=== PATIENT | female | born 1995 | race Caucasian/White ===

== ENCOUNTER 2019-06-21 20:30 | Emergency (ER) | payer OTHER, MEDICAID ==
[2019-06-21 23:02] LABS: ABS Basophils 0.1 10^3/ul (0-0.2); ABS Eosinophils 0.2 10^3/ul (0-0.6); ABS Lymphocytes 2.9 10^3/ul (1.0-4.8); ABS Monocytes 0.9 10^3/ul (0-0.8); ABS Neutrophils 12.4 10^3/ul (1.5-7.7); Eosinophil % 1.2 %; Hematocrit 40 % (35-47); Hemoglobin 13.6 g/dL (12.0-16.0); Lymphocyte % 17.5 %; Mean Corpuscular HGB Conc 34 g/dL (31-36); Mean Corpuscular Hemoglobin 31 pg (27-31); Mean Corpuscular Volume 91 fL (80-97); Mean Platelet Volume 7.6 fL (7.4-10.4); Nucleated Red Blood Cells % 0.1; Platelet Count 415 10^3/uL (150-450); Red Blood Count 4.43 10^6 /uL (3.70-4.87); Red Cell Distribution Width 13 % (10-15); White Blood Count 16.4 10^3/uL (3.5-10.8)
--- NOTE | 2019-06-21 23:08 | ED ---
Medical Screening - HPI Summary HPI Summary: Family bringing patient to ED for episodes of aggression against family. Patient has history of depression 4 years on medication. Denies SI, HI. Family states patient medications have been recently adjusted but have not yet controlled patient's outbursts. Patient is followed by Dr. Wesley for mental health. Patient is compliant with medications. Also complains of sore throat. Denies any other pain, injury, symptoms. Medical history schizophrenia, anxiety. Denies EtOH, or recreational drug use. - History of Current Complaint Chief Complaint: EDPsychosocial Stated Complaint: MHE PER PT Time Seen by Provider: 06/21/19 22:17 Onset/Duration: Started Days Ago Severity: moderate PMH/Surg Hx/FS Hx/Imm Hx Endocrine/Hematology History: Denies: Hx Diabetes Cardiovascular History: Reports: Hx Hypertension Denies: Hx Pacemaker/ICD History: Denies: Hx Dialysis, Hx Renal Disease Sensory History: Reports: Hx Contacts or Glasses Denies: Hx Hearing Aid Opthamlomology History: Reports: Hx Contacts or Glasses EENT History: Denies: Hx Deafness Neurological History: Reports: Hx Developmental Delay Psychiatric History: Reports: Hx Panic Disorder - ANXIETY AND MOM WILL TALK WITH REF DOCTOR Denies: Hx Eating Disorder, Hx of Violent Episodes Against Others - Surgical History Surgery Procedure, Year, and Place: LABIA PLASTY - Immunization History Immunizations Up to Date: Yes Infectious Disease History: No Infectious Disease History: Denies: Traveled Outside the [place] in Last 30 Days - Family History Known Family History: Negative: Non-Contributory - Social History Alcohol Use: None Substance Use Type: Reports: None Smoking Status (MU): Never Smoked Tobacco Review of Systems Constitutional: Negative Eyes: Negative Positive: Sore Throat Cardiovascular: Negative Respiratory: Negative Gastrointestinal: Negative Genitourinary: Negative Musculoskeletal: Negative Skin: Negative Neurological: Negative Positive: Depressed All Other Systems Reviewed And Are Negative: Yes Physical Exam - Summary Physical Exam Summary: Patient calm and cooperative with history of present illness. ENT exam unremarkable. Triage Information Reviewed: Yes Vital Signs On Initial Exam: Initial Vitals Temp Pulse Resp BP Pulse Ox 99.4 F 90 16 163/125 98 06/21/19 20:32 06/21/19 20:32 06/21/19 20:32 06/21/19 20:32 06/21/19 20:32 Vital Signs Reviewed: Yes Appearance: Positive: Well-Appearing Skin: Positive: Warm Head/Face: Positive: Normal Head/Face Inspection Eyes: Positive: Normal ENT: Positive: Normal ENT inspection Neck: Positive: Supple Respiratory/Lung Sounds: Positive: Clear to Auscultation Cardiovascular: Positive: Normal Abdomen Description: Positive: Nontender Musculoskeletal: Positive: Normal Neurological: Positive: Normal Psychiatric: Positive: Normal AVPU Assessment: Alert - Ronny Coma Scale Best Eye Response: 4 - Spontaneous Best Motor Response: 6 - Obeys Commands Best Verbal Response: 5 - Oriented Coma Scale Total: 15 Diagnostics - Vital Signs Vital Signs Temp Pulse Resp BP Pulse Ox 06/21/19 20:32 99.4 F 90 16 163/125 98 - Laboratory Lab Results: Lab Results 06/21/19 Range/Units 22:55 WBC 16.4 H (3.5-10.8) 10^3/uL RBC 4.43 (3.70-4.87) 10^6 /uL Hgb 13.6 (12.0-16.0) g/dL Hct 40 (35-47) % MCV 91 (80-97) fL MCH 31 (27-31) pg MCHC 34 (31-36) g/dL RDW 13 (10-15) % Plt Count 415 (150-450) 10^3/uL MPV 7.6 (7.4-10.4) fL Neut % (Auto) 75.5 % Lymph % (Auto) 17.5 % [place] % (Auto) 5.2 % Eos % (Auto) 1.2 % Baso % (Auto) 0.6 % Absolute Neuts (auto) 12.4 H (1.5-7.7) 10^3/ul Absolute Lymphs (auto) 2.9 (1.0-4.8) 10^3/ul Absolute Monos (auto) 0.9 H (0-0.8) 10^3/ul Absolute Eos (auto) 0.2 (0-0.6) 10^3/ul Absolute Basos (auto) 0.1 (0-0.2) 10^3/ul Absolute Nucleated RBC 0.0 10^3/ul Nucleated RBC % 0.1 Result Diagrams: 06/21/19 22:55 06/21/19 22:55 Lab Statement: Any lab studies that have been ordered have been reviewed, and results considered in the medical decision making process. Course/Dx - Course Course Of Treatment: Family bringing patient to ED for episodes of aggression against family. Patient has history of depression 4 years on medication. Denies SI, HI. Family states patient medications have been recently adjusted but have not yet controlled patient's outbursts. Patient is followed by Dr. Wesley for mental health. Patient is compliant with medications. Also complains of sore throat. Denies any other pain, injury, symptoms. Medical history schizophrenia, anxiety. Denies EtOH, or recreational drug use. Vital signs within normal limits. WBC 16.4. Labs otherwise unremarkable. Strep negative. Mental health recommends discharge home with outpatient follow-up. - Diagnoses Provider Diagnoses: Adjustment disorder Discharge - Sign-Out/Discharge Documenting (check all that apply): Patient Departure Patient Received Moderate/Deep Sedation with Procedure: No - Discharge Plan Condition: Stable Disposition: HOME Patient Education Materials: Mood Disorders (ED) Referrals: No Primary Care Phys,NOPCP [Primary Care Provider] - Additional Instructions: Follow-up with outpatient mental health provider. - Billing Disposition and Condition Condition: STABLE Disposition: Home
[2019-06-21 23:18] LABS: ALT 32 U/L (7-52); Albumin 4.4 g/dL (3.2-5.2); Albumin/Globulin Ratio 1.4 (1-3); Alkaline Phosphatase 109 U/L (34-104); BUN/Creatinine Ratio 18.7 (8-20); Blood Urea Nitrogen 14 mg/dL (6-24); CO2 Carbon Dioxide 25 mmol/L (22-32); Calcium 9.5 mg/dL (8.6-10.3); Chloride 103 mmol/L (101-111); EGFR African American 116.9 (>60); EGFR Non-African American 96.6 (>60); Globulin 3.2 g/dL (2-4); Glucose 145 mg/dL (70-100); Sodium 136 mmol/L (135-145); Total Protein 7.6 g/dL (6.4-8.9)
[2019-06-21 23:25] LABS: HCG Pregnancy < 0.60 mIU/mL
[2019-06-21 23:33] LABS: Urine Appearance Clear; Urine Bilirubin Negative (Negative); Urine Blood Negative (Negative); Urine Color Colorless; Urine Glucose Negative (Negative); Urine Ketones Negative (Negative); Urine Nitrite Negative (Negative); Urine Protein Negative (Negative); Urine Specific Gravity 1.002 (1.010-1.030); Urine Urobilinogen Negative (Negative)
[2019-06-21 23:38] LABS: Acetaminophen < 15 mcg/mL; Alcohol < 10 mg/dL (<10); Salicylate < 2.50 mg/dL (<30)
[2019-06-21 23:42] LABS: AST 27 U/L (13-39); Anion Gap 8 mmol/L (2-11); Potassium 3.8 mmol/L (3.5-5.0)
[2019-06-21 23:57] LABS: Urine Benzodiazepine Screen None Detected (None Detect); Urine Opiates Screen None Detected (None Detect)
[2019-06-22 00:11] LABS: TSH (Thyroid Stimulating Horm) 1.74 mcIU/mL (0.34-5.60)
[2019-06-22] MEDS ORDERED: Escitalopram * 10 MG TAB PO ONE (02:08)
[2019-06-22] MEDS ORDERED: ARIPiprazole TAB* 5 MG PO ONE (02:09)
[2019-06-22] MEDS ORDERED: QUEtiapine XR TAB* 300 MG PO ONE (02:09)
[2019-06-22] MEDS ORDERED: ARIPiprazole TAB* 20 MG PO ONE (03:00)
--- NOTE | 2019-06-22 10:01 | ED ---
Progress - Progress Note Progress Note: The patient is a sign-out from Dr. Walker Parson MD, to Dr. Kemi Wong MD, at change of shift at 0700 on 06/22/2019, pending MHE and disposition. - awaiting collarteral, pt will be moved to annex At 0915, Dr. Oviedo, psychiatry, states that the patient is clear for discharge with dx of adjustment disorder and follow up with outpatient services. She agrees with this plan. - Consult/PCP Time Called: 23:37 Course/Dx - Course Course Of Treatment: The patient is a sign-out from Dr. Walker Parson MD, to Dr. Kemi Wong MD, at change of shift at 0700 on 06/22/2019, pending MHE and disposition. At 0915, Dr. Oviedo, pyschiatry, states that the patient is clear for discharge with dx of adjustment disorder and follow up with outpatient services. She agrees with this plan. - Diagnoses Provider Diagnoses: Adjustment disorder - Provider Notifications Discussed Care Of Patient With: Charli Oviedo - psychiatry Time Discussed With Above Provider: 09:15 Instructed by Provider To: Other - Dr. Oviedo states the patient can be discharged with dx of adjustment disorder and outpatient follow up. Discharge - Sign-Out/Discharge Documenting (check all that apply): Patient Departure - Patient will be discharged home., Receiving Sign-Out Receiving patient FROM: Walker Parson - Patient is a sign-out from Dr. Walker Parson MD, at change of shift at 0700 on 06/22/2019, pending MHE and disposition. Patient Received Moderate/Deep Sedation with Procedure: No - Discharge Plan Condition: Stable Disposition: HOME Patient Education Materials: Mood Disorders (ED) Referrals: No Primary Care Phys,NOPCP [Primary Care Provider] - - Billing Disposition and Condition Condition: STABLE Disposition: Home - Attestation Statements Document Initiated by Bianca: Yes Documenting Scribe: Grace Mendenhall Provider For Whom Bianca is Documenting (Include Credential): Dr. Kemi Wong MD Scribe Attestation: Grace Calixto scribed for Dr. Kemi Wong MD on 06/22/19 at 1032. Scribe Documentation Reviewed: Yes Provider Attestation: The documentation as recorded by the Grace mcqueen accurately reflects the service I personally performed and the decisions made by me, Dr. Kemi Wong MD Status of Scribандрей Document: Viewed
[2019-06-22 10:15] VITALS: BP 151/86
== END 2019-06-22 10:35 | disposition home or self-care (01) ==
LOC: ED 20:30
DX: F43.20 Adjustment disorder, unspecified (principal); I10 Essential (primary) hypertension; F20.9 Schizophrenia, unspecified; F41.9 Anxiety disorder, unspecified; Z79.899 Other long term (current) drug therapy
CPT/HCPCS: 36415; 80053; 80307; 80320; 80329; 81003; 84443; 84702; 85025; 99285; A9270-GY; G0480